=== PATIENT | male | born 1970 | race African-American/Black ===

== ENCOUNTER 2018-09-06 16:28 | Inpatient (IN) | payer MEDICAID ==
[~2018-09-06] VITALS: Ht 170.2 cm; Wt 83.9 kg
[2018-09-06 21:41] LABS: CHLORIDE 106 mEq/L (98-107)
[2018-09-06 21:47] LABS: BASOPHILS % 0.9 % (0.0-2.0); HEMATOCRIT. 44.7 % (42.0-52.0); HEMOGLOBIN. 15.9 g/dL (14.0-18.0); LYMPHOCYTES % 27.8 % (20.0-50.0); MEAN CORPUSCULAR HEMOGLOBIN 35.2 pg (28.0-32.0); MEAN CORPUSCULAR VOLUME 99.3 fL (80.0-94.0); MEAN PLATELET VOLUME 7.8 fl (7.4-10.4); MONOCYTES % 8.9 % (2.0-8.0); NEUTROPHILS % 61.4 % (40.0-76.0); PLATELET 193 x1000/uL (130-400); RED CELL DISTRIBUTION WIDTH 12.9 % (11.6-14.6)
[2018-09-07] MEDS ORDERED: MAGNESIUM/ALUMINUM HYDROXIDE/SIMETHICONE 30ML UDC PO PRN
[2018-09-07] MEDS ORDERED: ONDANSETRON HCL 4MG/2ML INJ IV PRN
[2018-09-07] MEDS ORDERED: DOCUSATE SODIUM 100MG CAPSULE PO PRN
[2018-09-07] MEDS ORDERED: CLONIDINE 0.1MG TABLET PO PRN
[2018-09-07] MEDS ORDERED: IPRATROPIUM/ALBUTEROL 0.5-3(2.5)MG/3ML NEB INH PRN
[2018-09-07] MEDS: SODIUM CHLORIDE 0.9% 1,000 ML IV SCH ×2 (00:35→11:54)
[2018-09-07 04:40] VITALS: BP 112/68
[2018-09-07] MEDS ORDERED: HYDROCODONE/ACETAMINOPHEN 5/325MG TABLET PO PRN (07:15)
[2018-09-07 08:00] VITALS: BP 111/68
[2018-09-07] MEDS ORDERED: ENOXAPARIN 40MG/0.4ML SYR SUBCUT SCH (09:00)
[2018-09-07 09:02] LABS: BASOPHILS % 0.6 % (0.0-2.0); EOSINOPHILS % 1.3 % (0.0-5.0); HEMATOCRIT. 45.5 % (42.0-52.0); HEMOGLOBIN. 15.5 g/dL (14.0-18.0); MEAN CORPUSCULAR HEMOGLOBIN 34.1 pg (28.0-32.0); MEAN CORPUSCULAR VOLUME 99.8 fL (80.0-94.0); MEAN PLATELET VOLUME 7.8 fl (7.4-10.4); MONOCYTES % 8.8 % (2.0-8.0); NEUTROPHILS % 58.3 % (40.0-76.0); PLATELET 177 x1000/uL (130-400); RED BLOOD CELL COUNT 4.56 mill/uL (4.7-6.1); RED CELL DISTRIBUTION WIDTH 12.4 % (11.6-14.6)
[2018-09-07 09:03] LABS: CHLORIDE 108 mEq/L (98-107)
[2018-09-07 09:12] LABS: LDL CHOLESTEROL 144 mg/dL (5-100)
[2018-09-07 09:14] LABS: CREATINE KINASE 87 IU/L (39-308)
[2018-09-07 09:16] LABS: HDL CHOLESTEROL 56 mg/dL (40-59)
[2018-09-07 09:18] LABS: CREATINE KINASE MB FRACTION < 1.0 ng/mL (0.5-3.6)
[2018-09-07 10:05] VITALS: BP_SYST 111; BP_SYST 139; BP_SYST 143; BP_DIAS 68; BP_DIAS 77; BP_DIAS 96
[2018-09-07 11:19] LABS: CLARITY URINE CLEAR (CLEAR); COLOR URINE YELLOW (YELLOW); KETONES URINE NEGATIVE (NEGATIVE); LEUKOCYTE ESTERASE URINE NEGATIVE (NEGATIVE); NITRITE URINE NEGATIVE (NEGATIVE); OCCULT BLOOD URINE NEGATIVE (NEGATIVE); PROTEIN URINE NEGATIVE (NEGATIVE); SPECIFIC GRAVITY URINE 1.014 (1.005-1.030); UROBILINOGEN URINE 0.2 E.U./dL (0.2-1.0)
[2018-09-07 11:31] LABS: *AMPHETAMINES SCREEN URINE NEGATIVE (NEGATIVE); CANNABINOID URINE SCREEN NEGATIVE (NEGATIVE); PHENCYCLIDINE URINE SCREEN NEGATIVE (NEGATIVE)
[2018-09-07 11:32] LABS: *BARBITURATES SCREEN URINE NEGATIVE (NEGATIVE); *BENZODIAZEPINES SCREEN URINE NEGATIVE (NEGATIVE); *COCAINE SCREEN URINE NEGATIVE (NEGATIVE); METHADONE URINE SCREEN NEGATIVE (NEGATIVE); OPIATES URINE SCREEN NEGATIVE (NEGATIVE)
[2018-09-07 12:00] VITALS: BP 117/76
[2018-09-07] MEDS: ACETAMINOPHEN 325MG TABLET PO PRN (12:02)
[2018-09-07 16:00] VITALS: BP 114/72
[2018-09-07 16:55] LABS: CREATINE KINASE 74 IU/L (39-308)
[2018-09-07 16:56] LABS: CREATINE KINASE MB FRACTION < 1.0 ng/mL (0.5-3.6)
[2018-09-07 20:00] VITALS: BP_SYST 138; BP_SYST 141; BP_SYST 143; BP_DIAS 100; BP_DIAS 62; BP_DIAS 91
[2018-09-07] MEDS ORDERED: ATORVASTATIN CALCIUM 40MG TABLET PO SCH (21:00)
[2018-09-07] MEDS: LEVETIRACETAM 500MG/5ML CUP PO SCH (21:11)
[2018-09-08] VITALS: BP 122/80
[2018-09-08 04:00] VITALS: BP 115/73
[2018-09-08 08:00] VITALS: BP 111/72
[2018-09-08] MEDS: LEVETIRACETAM 500MG/5ML CUP PO SCH (08:49)
[2018-09-08 11:54] VITALS: BP 111/72
[2018-09-08 12:00] VITALS: BP 127/69
[2018-09-08] MEDS: ACETAMINOPHEN 325MG TABLET PO PRN (14:44)
== END 2018-09-08 16:55 | disposition home or self-care (01) | DRG 48 ==
LOC: ER 16:28 → 7WST 23:20 → ENRESERV 09-07 02:33
PROVIDERS: ADMIT Internal Medicine; ATTEND Internal Medicine
DX: G90.8 Other disorders of autonomic nervous system (principal); G96.0 Cerebrospinal fluid leak; I10 Essential (primary) hypertension; D18.1 Lymphangioma, any site; E78.00 Pure hypercholesterolemia, unspecified; E78.5 Hyperlipidemia, unspecified; Z88.0 Allergy status to penicillin
CPT/HCPCS: 36415; 70551; 71045; 80061; 80305; 82550; 82553; 83735; 83880; 84443; 84484; 93005; 93306; 93880; 97162; 99285; J1650

== ENCOUNTER 2018-10-27 23:41 | Inpatient (IN) | payer MEDICAID ==
[~2018-10-27] VITALS: Ht 177.8 cm; Wt 94.4 kg
[2018-10-27] MEDS ORDERED: METHYLPREDNISOLONE SOD SUCC 125 MG/2 ML VIAL IV STA (23:47)
[2018-10-27] MEDS ORDERED: IPRATROPIUM BROMIDE (0.02%) 0.5MG/2.5ML NEB HHN STA (23:47)
[2018-10-27] MEDS ORDERED: ALBUTEROL (0.083%) 2.5MG/3ML NEB HHN STA (23:47)
[2018-10-28] VITALS (10 sets, daily range): BP systolic 128–162; BP diastolic 69–101
[2018-10-28 00:10] LABS: BASOPHILS % 1.2 % (0.0-2.0); EOSINOPHILS % 6.8 % (0.0-5.0); HEMATOCRIT. 46.5 % (42.0-52.0); HEMOGLOBIN. 16.3 g/dL (14.0-18.0); LYMPHOCYTES % 27.8 % (20.0-50.0); MEAN CORPUSCULAR HEMOGLOBIN 34.3 pg (28.0-32.0); MEAN CORPUSCULAR VOLUME 97.6 fL (80.0-94.0); MEAN PLATELET VOLUME 7.9 fl (7.4-10.4); MONOCYTES % 10.4 % (2.0-8.0); NEUTROPHILS % 53.8 % (40.0-76.0); PLATELET 206 x1000/uL (130-400); RED BLOOD CELL COUNT 4.77 mill/uL (4.7-6.1); RED CELL DISTRIBUTION WIDTH 12.8 % (11.6-14.6)
[2018-10-28 01:12] LABS: CHLORIDE 106 mEq/L (98-107)
[2018-10-28] MEDS ORDERED: LIP40 PO (04:45)
[2018-10-28] MEDS ORDERED: NAPR375T5 MT (04:45)
[2018-10-28] MEDS ORDERED: IPRATROPIUM/ALBUTEROL 0.5-3(2.5)MG/3ML NEB HHN PRN (05:45)
[2018-10-28] MEDS ORDERED: METHYLPREDNISOLONE SOD SUCC 40 MG/ML VIAL IV SCH (06:00)
[2018-10-28] MEDS: PANTOPRAZOLE 40MG DR TABLET PO SCH (06:08)
[2018-10-28] MEDS ORDERED: ONDANSETRON HCL 4MG/2ML INJ IV PRN (07:15)
[2018-10-28] MEDS ORDERED: BENZONATATE 100MG CAPSULE PO PRN (07:15)
[2018-10-28] MEDS ORDERED: ACETAMINOPHEN 325MG TABLET PO PRN (07:15)
[2018-10-28] MEDS: IPRATROPIUM/ALBUTEROL 0.5-3(2.5)MG/3ML NEB HHN SCH ×3 (08:32→20:40)
[2018-10-28 10:55] LABS: CREATINE KINASE 273 IU/L (39-308); LDL CHOLESTEROL 101 mg/dL (5-100)
[2018-10-28 10:58] LABS: HDL CHOLESTEROL 59 mg/dL (40-59)
[2018-10-28 11:00] LABS: *AMPHETAMINES SCREEN URINE NEGATIVE (NEGATIVE); *BARBITURATES SCREEN URINE NEGATIVE (NEGATIVE); *BENZODIAZEPINES SCREEN URINE NEGATIVE (NEGATIVE); *COCAINE SCREEN URINE NEGATIVE (NEGATIVE); CANNABINOID URINE SCREEN NEGATIVE (NEGATIVE); METHADONE URINE SCREEN NEGATIVE (NEGATIVE); OPIATES URINE SCREEN NEGATIVE (NEGATIVE); PHENCYCLIDINE URINE SCREEN NEGATIVE (NEGATIVE)
[2018-10-28 17:05] LABS: CREATINE KINASE 255 IU/L (39-308)
[2018-10-28 17:06] LABS: CREATINE KINASE MB FRACTION 1.8 ng/mL (0.5-3.6)
[2018-10-28] MEDS: AMLODIPINE 5MG TABLET PO SCH ×2 (18:06→20:30)
[2018-10-28] MEDS: LOSARTAN POTASSIUM 100 MG TABLET PO SCH (20:30)
[2018-10-28] MEDS: FLUTICASONE PROPIONATE 50MCG/SPRAY BOTTLE BOTHNSTRLS SCH (20:31)
[2018-10-29] VITALS (11 sets, daily range): BP systolic 107–151; BP diastolic 64–99
[2018-10-29] MEDS: IPRATROPIUM/ALBUTEROL 0.5-3(2.5)MG/3ML NEB HHN SCH ×5 (00:30→20:37)
[2018-10-29] MEDS: PANTOPRAZOLE 40MG DR TABLET PO SCH (06:19)
[2018-10-29 06:26] LABS: BASOPHILS % 0.1 % (0.0-2.0); EOSINOPHILS % 0.2 % (0.0-5.0); HEMATOCRIT. 44.7 % (42.0-52.0); HEMOGLOBIN. 15.6 g/dL (14.0-18.0); LYMPHOCYTES % 12.5 % (20.0-50.0); MEAN CORPUSCULAR HEMOGLOBIN 34.1 pg (28.0-32.0); MEAN CORPUSCULAR VOLUME 97.5 fL (80.0-94.0); MEAN PLATELET VOLUME 8.3 fl (7.4-10.4); MONOCYTES % 8.9 % (2.0-8.0); NEUTROPHILS % 78.3 % (40.0-76.0); PLATELET 194 x1000/uL (130-400); RED BLOOD CELL COUNT 4.59 mill/uL (4.7-6.1)
[2018-10-29 06:32] LABS: CHLORIDE 110 mEq/L (98-107)
[2018-10-29] MEDS: AMLODIPINE 5MG TABLET PO SCH ×2 (08:43→21:26)
[2018-10-29] MEDS: LOSARTAN POTASSIUM 100 MG TABLET PO SCH (08:43)
[2018-10-29] MEDS: FLUTICASONE PROPIONATE 50MCG/SPRAY BOTTLE BOTHNSTRLS SCH ×2 (08:44→21:26)
[2018-10-29] MEDS ORDERED: POTASSIUM CHLORIDE 20MEQ/PACKET PO NR (12:30)
[2018-10-29] MEDS: FAMOTIDINE 20MG TABLET PO SCH (21:26)
[2018-10-30] VITALS (10 sets, daily range): BP systolic 108–150; BP diastolic 71–97
[2018-10-30] MEDS: IPRATROPIUM/ALBUTEROL 0.5-3(2.5)MG/3ML NEB HHN SCH ×5 (01:03→16:06)
[2018-10-30 06:39] LABS: BASOPHILS % 0.8 % (0.0-2.0); EOSINOPHILS % 4.9 % (0.0-5.0); HEMATOCRIT. 44.2 % (42.0-52.0); HEMOGLOBIN. 15.7 g/dL (14.0-18.0); LYMPHOCYTES % 29.7 % (20.0-50.0); MEAN CORPUSCULAR HEMOGLOBIN 34.6 pg (28.0-32.0); MEAN PLATELET VOLUME 8.2 fl (7.4-10.4); MONOCYTES % 9.5 % (2.0-8.0); NEUTROPHILS % 55.1 % (40.0-76.0); PLATELET 185 x1000/uL (130-400); RED BLOOD CELL COUNT 4.55 mill/uL (4.7-6.1); RED CELL DISTRIBUTION WIDTH 13.1 % (11.6-14.6)
[2018-10-30 07:12] LABS: CHLORIDE 110 mEq/L (98-107)
[2018-10-30] MEDS: LOSARTAN POTASSIUM 100 MG TABLET PO SCH (08:04)
[2018-10-30] MEDS: FAMOTIDINE 20MG TABLET PO SCH (08:04)
[2018-10-30] MEDS: FLUTICASONE PROPIONATE 50MCG/SPRAY BOTTLE BOTHNSTRLS SCH (08:05)
[2018-10-30] MEDS: AMLODIPINE 5MG TABLET PO SCH (08:05)
== END 2018-10-30 17:30 | disposition home or self-care (01) | DRG 133 ==
LOC: ER 23:41 → EDBEDREQSVC 10-28 02:53 → EDBEDREQ 10-28 02:53 → EDBEDREQDT 10-28 02:53 → EDBEDREQTM 10-28 02:53 → ENRESERV 10-28 03:11 → 3WST 10-28 04:45 → 6WST 10-28 13:25 → 3WST 10-28 14:03
PROVIDERS: ADMIT Internal Medicine; ATTEND Internal Medicine
PROC: 5A09357 Assistance with Respiratory Ventilation, Less than 24 Consecutive Hours, Continuous Positive Airway Pressure (ICD-10-PCS; principal; 2018-10-28)
DX: J96.00 Acute respiratory failure, unspecified whether with hypoxia or hypercapnia (principal); E44.0 Moderate protein-calorie malnutrition; J44.1 Chronic obstructive pulmonary disease with (acute) exacerbation; I11.9 Hypertensive heart disease without heart failure; G96.0 Cerebrospinal fluid leak; J06.9 Acute upper respiratory infection, unspecified; E78.5 Hyperlipidemia, unspecified; E66.9 Obesity, unspecified; Z87.828 Personal history of other (healed) physical injury and trauma; Z68.29 Body mass index [BMI] 29.0-29.9, adult; Z88.0 Allergy status to penicillin; Z79.899 Other long term (current) drug therapy; Z71.3 Dietary counseling and surveillance
CPT/HCPCS: 36415; 71045; 80048; 80061; 80305; 82550; 82553; 83880; 84443; 84484; 93005; 93970; 94640; 94660; 96374; 99285; J2920; J2930; J7611; J7620

== ENCOUNTER 2018-10-31 22:53 | Inpatient (IN) | payer MEDICAID ==
[~2018-10-31] VITALS: Ht 170.2 cm; Wt 90.7 kg
[~2018-10-31 22:53] MED LIST: LIP40 PO; NAPR375T5 MT
[2018-10-31] MEDS ORDERED: SODIUM CHLORIDE 0.9% 1,000 ML IV ONE (22:56)
[2018-10-31] MEDS ORDERED: IPRATROPIUM BROMIDE (0.02%) 0.5MG/2.5ML NEB HHN STA (22:56)
[2018-10-31] MEDS ORDERED: METHYLPREDNISOLONE SOD SUCC 125 MG/2 ML VIAL IV STA (22:56)
[2018-10-31] MEDS ORDERED: ONDANSETRON HCL 4MG/2ML INJ IV STA (22:56)
[2018-10-31] MEDS ORDERED: MAGNESIUM 2 G PREMIX 50 ML IV ONE (23:00)
[2018-10-31] MEDS: ALBUTEROL (0.083%) 2.5MG/3ML NEB HHN SCH ×2 (23:00→23:30)
[2018-10-31 23:14] LABS: BASOPHILS % 1.3 % (0.0-2.0); EOSINOPHILS % 9.3 % (0.0-5.0); HEMATOCRIT. 49.6 % (42.0-52.0); HEMOGLOBIN. 17.4 g/dL (14.0-18.0); LYMPHOCYTES % 28.5 % (20.0-50.0); MEAN CORPUSCULAR HEMOGLOBIN 34.2 pg (28.0-32.0); MEAN CORPUSCULAR VOLUME 97.7 fL (80.0-94.0); MONOCYTES % 10.3 % (2.0-8.0); NEUTROPHILS % 50.6 % (40.0-76.0); PLATELET 205 x1000/uL (130-400); RED BLOOD CELL COUNT 5.07 mill/uL (4.7-6.1); RED CELL DISTRIBUTION WIDTH 12.7 % (11.6-14.6)
[2018-10-31 23:23] LABS: BG BASE EXCESS -0.4 mmol/L (-2.0-2.0); BG CARBOXYHEMOGLOBIN 0.3 % (0.5-1.5); BG DEOXYHEMOGLOBIN 1.1 % (0.0-5.0); BG FRACTION INSPIRED OXYGEN 50; BG HCO3 ACT 23.4 mmol/L (22.0-26.0); BG METHEMOGLOBIN 0.2 % (0.0-1.5); BG OXYGEN SATURATION 98.9 % (92.0-98.5); BG OXYHEMOGLOBIN 98.4 % (94.0-97.0); BG PCO2 36.4 mmHg (35.0-45.0); BG PH 7.426 (7.350-7.450); BG PO2 176.2 mmHg (75.0-100.0); BG SAMPLE SITE RIGHT RADIAL; BG TOTAL HEMOGLOBIN 17.2 g/dL (12.0-18.0)
[2018-10-31 23:31] LABS: CHLORIDE 110 mEq/L (98-107)
[2018-11-01] MEDS: ALBUTEROL (0.083%) 2.5MG/3ML NEB HHN SCH (00:10)
[2018-11-01] MEDS ORDERED: CLONIDINE 0.1MG TABLET PO PRN (07:15)
[2018-11-01] MEDS ORDERED: DOCUSATE SODIUM 100MG CAPSULE PO PRN (07:15)
[2018-11-01] MEDS ORDERED: DIPHENHYDRAMINE 50MG/ML VIAL IV PRN (07:15)
[2018-11-01] MEDS ORDERED: ACETAMINOPHEN 325MG TABLET PO PRN (07:15)
[2018-11-01] MEDS ORDERED: GUAIFENESIN 200MG/10ML SUGAR FREE UDC PO PRN (07:15)
[2018-11-01] MEDS ORDERED: ONDANSETRON HCL 4MG/2ML INJ IV PRN (07:15)
[2018-11-01] MEDS ORDERED: HYDROCODONE/ACETAMINOPHEN 5/325MG TABLET PO PRN (07:15)
[2018-11-01] MEDS ORDERED: MAGNESIUM/ALUMINUM HYDROXIDE/SIMETHICONE 30ML UDC PO PRN (07:15)
[2018-11-01 07:50] VITALS: BP 144/99
[2018-11-01 08:00] VITALS: BP 144/99
[2018-11-01] MEDS ORDERED: METHYLPREDNISOLONE SOD SUCC 125 MG/2 ML VIAL IV SCH (09:00)
[2018-11-01] MEDS: IPRATROPIUM/ALBUTEROL 0.5-3(2.5)MG/3ML NEB INH PRN ×2 (09:25→15:55)
[2018-11-01] MEDS: ENOXAPARIN 40MG/0.4ML SYR SUBCUT SCH (09:44)
[2018-11-01] MEDS ORDERED: LATA2.5D2 EACHEYE (11:21)
[2018-11-01] MEDS ORDERED: DORZ10DR12 EACHEYE (11:21)
[2018-11-01] MEDS ORDERED: BRIM5DRO6 EACHEYE (11:21)
[2018-11-01] MEDS ORDERED: PNEUMOCOCCAL 23-VAL P-SAC VAC 0.5 ML IM ONE (11:30)
[2018-11-01 11:58] LABS: PHOSPHORUS 2.8 mg/dL (2.5-4.9)
[2018-11-01 12:00] VITALS: BP 151/81
[2018-11-01 16:00] VITALS: BP 139/80
[2018-11-01] MEDS: METHYLPREDNISOLONE SOD SUCC 40 MG/ML VIAL IV SCH (18:02)
[2018-11-01 20:00] VITALS: BP 146/97
[2018-11-01] MEDS: IPRATROPIUM/ALBUTEROL 0.5-3(2.5)MG/3ML NEB HHN SCH (21:19)
[2018-11-02] VITALS: BP 144/71
[2018-11-02] MEDS: IPRATROPIUM/ALBUTEROL 0.5-3(2.5)MG/3ML NEB HHN SCH ×5 (00:41→15:55)
[2018-11-02 00:45] LABS: CREATINE KINASE MB FRACTION 1.6 ng/mL (0.5-3.6)
[2018-11-02] MEDS: FAMOTIDINE 20MG/2ML VIAL IV SCH ×2 (02:37→10:00)
[2018-11-02] MEDS: METHYLPREDNISOLONE SOD SUCC 40 MG/ML VIAL IV SCH ×2 (02:38→10:00)
[2018-11-02 04:00] VITALS: BP 108/62
[2018-11-02 06:03] LABS: CHLORIDE 108 mEq/L (98-107)
[2018-11-02 06:13] LABS: LDL CHOLESTEROL 100 mg/dL (5-100)
[2018-11-02 06:14] LABS: HDL CHOLESTEROL 55 mg/dL (40-59)
[2018-11-02 06:37] LABS: BASOPHILS % 0.1 % (0.0-2.0); HEMOGLOBIN. 14.9 g/dL (14.0-18.0); LYMPHOCYTES % 7.9 % (20.0-50.0); MEAN CORPUSCULAR HEMOGLOBIN 34.2 pg (28.0-32.0); MEAN CORPUSCULAR VOLUME 98.5 fL (80.0-94.0); MEAN PLATELET VOLUME 8.4 fl (7.4-10.4); PLATELET 208 x1000/uL (130-400); RED BLOOD CELL COUNT 4.37 mill/uL (4.7-6.1); RED CELL DISTRIBUTION WIDTH 12.9 % (11.6-14.6)
[2018-11-02 08:00] VITALS: BP 134/89
[2018-11-02] MEDS ORDERED: FLUTICASONE PROPIONATE 50MCG/SPRAY BOTTLE BOTHNSTRLS SCH (09:00)
[2018-11-02] MEDS ORDERED: LORATADINE 10MG TABLET PO SCH (09:00)
[2018-11-02] MEDS: ENOXAPARIN 40MG/0.4ML SYR SUBCUT SCH (09:10)
[2018-11-02 12:00] VITALS: BP 119/70
[2018-11-02 16:00] VITALS: BP 146/94
[2018-11-02] MEDS ORDERED: MONTELUKAST SODIUM 10MG TABLET PO SCH (17:00)
[2018-11-02] MEDS ORDERED: PREDNISONE 20MG TABLET PO SCH (17:00)
[2018-11-02 17:31] LABS: CLARITY URINE CLEAR (CLEAR); COLOR URINE YELLOW (YELLOW); KETONES URINE NEGATIVE (NEGATIVE); LEUKOCYTE ESTERASE URINE NEGATIVE (NEGATIVE); NITRITE URINE NEGATIVE (NEGATIVE); OCCULT BLOOD URINE NEGATIVE (NEGATIVE); PH URINE 6.5 (4.5-8.0); PROTEIN URINE NEGATIVE (NEGATIVE); SPECIFIC GRAVITY URINE 1.004 (1.005-1.030); UROBILINOGEN URINE 0.2 E.U./dL (0.2-1.0)
[2018-11-02 17:49] LABS: *AMPHETAMINES SCREEN URINE NEGATIVE (NEGATIVE)
[2018-11-02 17:50] LABS: *BARBITURATES SCREEN URINE NEGATIVE (NEGATIVE); *BENZODIAZEPINES SCREEN URINE NEGATIVE (NEGATIVE); *COCAINE SCREEN URINE NEGATIVE (NEGATIVE); METHADONE URINE SCREEN NEGATIVE (NEGATIVE); OPIATES URINE SCREEN NEGATIVE (NEGATIVE)
[2018-11-02 17:52] LABS: CANNABINOID URINE SCREEN NEGATIVE (NEGATIVE); PHENCYCLIDINE URINE SCREEN NEGATIVE (NEGATIVE)
[2018-11-02] MEDS ORDERED: ENOXAPARIN 30MG/0.3ML SYR SUBCUT SCH (21:00)
== END 2018-11-02 19:00 | disposition home or self-care (01) | DRG 141 ==
LOC: ER 23:04 → 6WST 11-01 03:12 → EDBEDREQ 11-01 03:14 → EDBEDREQDT 11-01 03:14 → EDBEDREQTM 11-01 03:14 → ENRESERV 11-01 07:12
PROVIDERS: ADMIT Internal Medicine; ATTEND Internal Medicine
DX: J45.901 Unspecified asthma with (acute) exacerbation (principal); J96.00 Acute respiratory failure, unspecified whether with hypoxia or hypercapnia; D72.1 Eosinophilia; G96.0 Cerebrospinal fluid leak; J44.9 Chronic obstructive pulmonary disease, unspecified; E78.00 Pure hypercholesterolemia, unspecified; E78.5 Hyperlipidemia, unspecified; I10 Essential (primary) hypertension; Z88.0 Allergy status to penicillin
CPT/HCPCS: 36415; 36600; 71045; 80061; 80305; 81003; 82375; 82550; 82553; 82805; 83605; 83735; 83880; 84100; 84443; 84484; 85379; 93005; 93970; 94640; 96374; 96375; 97161; 97165; 99285; J1650; J2405; J2920; J2930; J3475; J3490; J7030; J7512; J7611; J7620

== ENCOUNTER 2019-03-03 15:17 | Emergency (ER) | payer MEDICAID ==
[~2019-03-03] VITALS: Ht 170.2 cm; Wt 87.0 kg
[~2019-03-03 15:17] MED LIST changes: +BRIM5DRO6 EACHEYE; +DORZ10DR12 EACHEYE; +LATA2.5D2 EACHEYE
[2019-03-03 17:16] VITALS: BP 134/89
== END 2019-03-03 17:23 | disposition home or self-care (01) ==
LOC: ER 15:17
DX: J44.1 Chronic obstructive pulmonary disease with (acute) exacerbation (principal)
CPT/HCPCS: 99283